=== PATIENT | male | born 1975 | race Two or more races ===

== ENCOUNTER 2017-10-08 12:25 | Inpatient (IN) | payer OTHER ==
[~2017-10-08] VITALS: Ht 167.6 cm; Wt 88.0 kg
[2017-10-08] MEDS ORDERED: SODIUM CHLORIDE 0.9% 1,000 ML IV ONE (12:52)
[2017-10-08] MEDS ORDERED: HYDROmorphone 2 MG/ML, 1ML ONE (12:57)
[2017-10-08] MEDS ORDERED: ONDANSETRON 2MG/ML, 2ML ONE (12:57)
[2017-10-08] MEDS ORDERED: SODIUM CHLORIDE 0.9% 1,000ML IVBOLUS ONE (13:00)
[2017-10-08] MEDS ORDERED: ONDANSETRON 2MG/ML, 2ML IVPush ONE (13:00)
[2017-10-08] MEDS ORDERED: SODIUM CHLORIDE FLUSH 10ML SYR IVF ONE ×2 (13:00)
[2017-10-08] MEDS ORDERED: HYDROmorphone 1 MG/ML, 1ML IVPush PRN (13:00)
[2017-10-08] MEDS ORDERED: MORPHINE SULFATE 4 MG/ML, 1ML ONE ×3 (13:01→15:49)
[2017-10-08] MEDS: MORPHINE SULFATE 4 MG/ML, 1ML IVPush PRN ×2 (13:04→14:21)
[2017-10-08 13:06] LABS: MEAN CORPUSCULAR HEMOGLOBIN 29.4 pg (27.5-34.5); MEAN CORPUSCULAR HGB CONC 33.3 g/dL (33.2-36.2); MEAN CORPUSCULAR VOLUME 88.1 fL (81-97); MEAN PLATELET VOLUME 8.9 fL (7.4-10.4); PLATELET COUNT 263 x10^3/uL (130-400); RED BLOOD COUNT 5.86 x10^6/uL (4.38-5.82); RED CELL DISTRIBUTION WIDTH 13.7 % (9.4-14.8)
[2017-10-08 13:18] LABS: ALBUMIN 4.2 g/dL (3.4-5.0); ANION GAP 8 mmol/L (5-15); CALCIUM 8.9 mg/dL (8.5-10.1); CHLORIDE 107 mmol/L (98-107)
[2017-10-08 13:26] LABS: TROPONIN I < 0.015 ng/mL (0.000-0.045)
[2017-10-08 13:28] LABS: ALANINE AMINOTRANSFERASE 108 U/L (12-78); ALKALINE PHOSPHATASE 132 U/L (45-117); BILIRUBIN,TOTAL 2.1 mg/dL (0.2-1.0); CREATININE 1.09 mg/dL (0.7-1.3); TOTAL PROTEIN 7.8 g/dL (6.4-8.2)
[2017-10-08 13:33] LABS: MD YES
[2017-10-08 13:36] LABS: BAND#(MANUAL) 1.05 x10^3/uL; BANDS%(MANUAL) 4 % (0-7); LYMPH#(MANUAL) 2.89 x10^3/uL (1-3.4); LYMPHS% (MANUAL) 11 % (22-44); MONOS#(MANUAL) 1.58 x10^3/uL (0.3-2.7); MONOS% (MANUAL) 6 % (2-9); SEG#(MANUAL) 20.78 x10^3/uL (1.8-6.8); SEGS% (MANUAL) 79 % (42-75)
[2017-10-08 13:37] LABS: <PLATELET ESTIMATE> ADEQUATE; <PLT MORPHOLOGY> NORMAL PLT MORPH; <RBC MORPHOLOGY> NORMAL
[2017-10-08 17:33] VITALS: BP 121/63
[2017-10-08] MEDS ORDERED: hydrALAzine 20 MG/ML, 1ML IVPush PRN (18:30)
[2017-10-08] MEDS ORDERED: ONDANSETRON 2MG/ML, 2ML IVPush PRN (18:30)
[2017-10-08] MEDS: ENOXAPARIN 40 MG/0.4 ML SQ SCH (18:30)
[2017-10-08] MEDS ORDERED: ACETAMINOPHEN 325 MG TABLET PO PRN (18:30)
[2017-10-08 19:33] VITALS: BP 122/71
[2017-10-08] MEDS: LACTATED RINGERS 1,000 ML IV SCH (19:41)
[2017-10-08] MEDS: HYDROmorphone 2 MG/ML, 1ML IVPush PRN ×2 (19:56→22:14)
[2017-10-09] MEDS: LACTATED RINGERS 1,000 ML IV SCH ×5 (00:49→23:13)
[2017-10-09 01:05] VITALS: BP 120/75
[2017-10-09] MEDS: HYDROmorphone 2 MG/ML, 1ML IVPush PRN ×6 (02:47→22:16)
[2017-10-09 02:52] LABS: MICROSCOPIC NOT IND
[2017-10-09 04:28] LABS: CULTURE INDICATED? NO
[2017-10-09 05:38] LABS: MEAN CORPUSCULAR HEMOGLOBIN 29.7 pg (27.5-34.5); MEAN CORPUSCULAR HGB CONC 34.1 g/dL (33.2-36.2); MEAN CORPUSCULAR VOLUME 87.3 fL (81-97); MEAN PLATELET VOLUME 9.2 fL (7.4-10.4); PLATELET COUNT 223 x10^3/uL (130-400); RED BLOOD COUNT 5.67 x10^6/uL (4.38-5.82); RED CELL DISTRIBUTION WIDTH 14.2 % (9.4-14.8)
[2017-10-09 05:46] LABS: CHLORIDE 111 mmol/L (98-107)
[2017-10-09 05:59] LABS: ALANINE AMINOTRANSFERASE 172 U/L (12-78); ALBUMIN 3.1 g/dL (3.4-5.0); ALKALINE PHOSPHATASE 125 U/L (45-117); ANION GAP 10 mmol/L (5-15); BILIRUBIN,TOTAL 0.8 mg/dL (0.2-1.0); CALCIUM 7.9 mg/dL (8.5-10.1); CHOL/HDL RATIO 3.8; CHOLESTEROL, TOTAL 168 mg/dL (140-239); CREATININE 0.98 mg/dL (0.7-1.3); HDL CHOL % 26 % (26-37); HDL CHOLESTEROL (DIRECT) 44 mg/dL (40-60); LDL CHOLESTEROL,CALCULATED 107 mg/dL (54-169); LDL/HDL RATIO 2.4 (0.5-3.0); TOTAL PROTEIN 6.2 g/dL (6.4-8.2); TRIGLYCERIDES 86 mg/dL (50-200); VLDL CHOLESTEROL 17 mg/dL (0-25)
[2017-10-09 06:38] LABS: BASOPHILS # (AUTO) 0.03 x10^3/uL (0-0.1); BASOPHILS % (AUTO) 0 % (0-1); EOSINOPHILS # (AUTO) 0.01 x10^3/uL (0-0.4); EOSINOPHILS % (AUTO) 0 % (1-7); LYMPHOCYTES # (AUTO) 1.18 x10^3/uL (1-3.4); LYMPHOCYTES % (AUTO) 6 % (22-44); MD SCAN; MONOCYTES # (AUTO) 0.82 x10^3/uL (0.2-0.8); MONOCYTES % (AUTO) 4 % (2-9); NEUTROPHILS # (AUTO) 16.63 x10^3/uL (1.8-6.8); NEUTROPHILS % (AUTO) 89 % (42-75)
[2017-10-09 08:09] VITALS: BP 105/73
[2017-10-09 13:32] VITALS: BP 103/68
[2017-10-09] MEDS: ENOXAPARIN 40 MG/0.4 ML SQ SCH (17:43)
[2017-10-09 22:10] VITALS: BP 120/77
[2017-10-10 00:32] VITALS: BP 108/73
[2017-10-10] MEDS: HYDROmorphone 2 MG/ML, 1ML IVPush PRN ×5 (01:48→22:14)
[2017-10-10] MEDS: LACTATED RINGERS 1,000 ML IV SCH ×2 (04:49→21:00)
[2017-10-10 06:08] LABS: ALBUMIN 2.5 g/dL (3.4-5.0); ANION GAP 8 mmol/L (5-15); CALCIUM 7.3 mg/dL (8.5-10.1); CHLORIDE 108 mmol/L (98-107)
[2017-10-10 06:12] LABS: MEAN CORPUSCULAR HEMOGLOBIN 29.7 pg (27.5-34.5); MEAN CORPUSCULAR HGB CONC 34.1 g/dL (33.2-36.2); MEAN CORPUSCULAR VOLUME 87.2 fL (81-97); MEAN PLATELET VOLUME 9.3 fL (7.4-10.4); PLATELET COUNT 185 x10^3/uL (130-400); RED BLOOD COUNT 5.04 x10^6/uL (4.38-5.82); RED CELL DISTRIBUTION WIDTH 13.9 % (9.4-14.8)
[2017-10-10 06:14] LABS: ALANINE AMINOTRANSFERASE 76 U/L (12-78); ALKALINE PHOSPHATASE 98 U/L (45-117); BILIRUBIN,TOTAL 0.8 mg/dL (0.2-1.0); CREATININE 0.69 mg/dL (0.7-1.3); TOTAL PROTEIN 5.4 g/dL (6.4-8.2)
[2017-10-10 06:25] LABS: MD YES
[2017-10-10 06:40] LABS: BANDS%(MANUAL) 2 % (0-7); LYMPHS% (MANUAL) 2 % (22-44); MONOS% (MANUAL) 4 % (2-9); SEG#(MANUAL) 23.09 x10^3/uL (1.8-6.8); SEGS% (MANUAL) 92 % (42-75)
[2017-10-10 06:41] LABS: <RBC MORPHOLOGY> NORMAL
[2017-10-10 06:42] LABS: <PLATELET ESTIMATE> ADEQUATE; <PLT MORPHOLOGY> NORMAL PLT MORPH
[2017-10-10 06:50] VITALS: BP 115/69
[2017-10-10] MEDS ORDERED: MIDAZOLAM 1 MG/ML, 2ML ONE (08:09)
[2017-10-10] MEDS ORDERED: FENTANYL PF 250 MCG/5ML ONE (08:09)
[2017-10-10] MEDS ORDERED: PROPOFOL 10 MG/ML, 20ML ONE (08:10)
[2017-10-10] MEDS ORDERED: NEOSTIGMINE 1 MG/ML, 10ML ONE (08:11)
[2017-10-10] MEDS ORDERED: ROCURONIUM 10 MG/ML,10ML ONE (08:11)
[2017-10-10] MEDS ORDERED: GLYCOPYRROLATE 0.4 MG/2 ML, 2ML ONE (08:11)
[2017-10-10] MEDS ORDERED: CEFOTETAN PMX 2GM/50ML 50 ML ONE (08:12)
[2017-10-10] MEDS ORDERED: EPINEPHRINE 1 MG/ML, 1ML ONE (09:09)
[2017-10-10] MEDS ORDERED: BUPIVACAINE/PF 0.5% ONE (09:09)
[2017-10-10] MEDS ORDERED: OXYcodone 5 MG/5 ML ORAL.SOL UDC PO PRN ×2 (09:30→13:30)
[2017-10-10] MEDS ORDERED: ONDANSETRON 2MG/ML, 2ML IVPush PRN (09:30)
[2017-10-10] MEDS ORDERED: HYDROmorphone 1 MG/ML, 1ML IV PRN (09:30)
[2017-10-10] MEDS ORDERED: MEPERIDINE/PF 25MG/0.5ML IVPush PRN (09:30)
[2017-10-10] MEDS ORDERED: POTASSIUM PHOS 4.4 MEQ/ML IV ONE (09:30)
[2017-10-10] MEDS ORDERED: PROMETHAZINE 12.5 MG SUPP PR PRN (09:30)
[2017-10-10] MEDS ORDERED: hydrALAzine 20 MG/ML, 1ML IV PRN (09:30)
[2017-10-10] MEDS ORDERED: LABETALOL 5MG/ML, 20ML IV PRN (09:30)
[2017-10-10] MEDS ORDERED: PHENYLEPHRINE 10 MG/ML ONE (09:55)
[2017-10-10] MEDS ORDERED: POTASSIUM PHOSPHATE 22 MEQ in SODIUM CHLORIDE 0.9% 250 ML IV ONE (10:00)
[2017-10-10] MEDS: FENTANYL PF 100 MCG/2ML IV PRN ×3 (11:45→11:58)
[2017-10-10] MEDS ORDERED: OXYcodone 5 MG/5 ML ORAL.SOL UDC ONE (11:46)
[2017-10-10] MEDS ORDERED: FENTANYL PF 100 MCG/2ML ONE (11:46)
[2017-10-10] MEDS ORDERED: ACETAMINOPHEN 650 MG/20.3 ML UDC ONE (11:46)
[2017-10-10 13:20] VITALS: BP 127/82
[2017-10-10] MEDS ORDERED: ONDANSETRON 2MG/ML, 2ML IV PRN (13:30)
[2017-10-10] MEDS ORDERED: morphine SULFATE 10 MG/ML, 1ML IV PRN (13:30)
[2017-10-10] MEDS: ACETAMINOPHEN 500 MG TABLET PO SCH ×2 (13:30→22:16)
[2017-10-10] MEDS ORDERED: OXYcodone IR 5MG TABLET PO PRN (14:30)
[2017-10-10] MEDS: KETOROLAC 30 MG/1 ML IV SCH ×2 (14:31→19:29)
[2017-10-10 20:10] VITALS: BP 109/73
[2017-10-10 23:26] VITALS: BP 93/54
[2017-10-11] MEDS: HYDROmorphone 2 MG/ML, 1ML IVPush PRN ×2 (00:20→07:34)
[2017-10-11] MEDS: KETOROLAC 30 MG/1 ML IV SCH ×4 (01:24→19:26)
[2017-10-11] MEDS: OXYcodone IR 5MG TABLET PO PRN ×6 (02:32→23:20)
[2017-10-11 03:37] VITALS: BP 109/69
[2017-10-11] MEDS: ACETAMINOPHEN 500 MG TABLET PO SCH ×3 (03:55→19:26)
[2017-10-11 04:07] LABS: MEAN CORPUSCULAR HEMOGLOBIN 29.9 pg (27.5-34.5); MEAN PLATELET VOLUME 9.2 fL (7.4-10.4); PLATELET COUNT 159 x10^3/uL (130-400); RED CELL DISTRIBUTION WIDTH 14.1 % (9.4-14.8)
[2017-10-11 04:21] LABS: CHLORIDE 106 mmol/L (98-107)
[2017-10-11 04:29] LABS: ALANINE AMINOTRANSFERASE 117 U/L (12-78); ALBUMIN 2.1 g/dL (3.4-5.0); ALKALINE PHOSPHATASE 91 U/L (45-117); ANION GAP 6 mmol/L (5-15); BILIRUBIN,TOTAL 0.7 mg/dL (0.2-1.0); CALCIUM 7.3 mg/dL (8.5-10.1); CREATININE 0.63 mg/dL (0.7-1.3); TOTAL PROTEIN 5.4 g/dL (6.4-8.2)
[2017-10-11 04:52] LABS: MD YES
[2017-10-11 04:54] LABS: <PLATELET ESTIMATE> ADEQUATE; <PLT MORPHOLOGY> NORMAL PLT MORPH; <RBC MORPHOLOGY> NORMAL; BAND#(MANUAL) 0.74 x10^3/uL; BANDS%(MANUAL) 4 % (0-7); EOS#(MANUAL) 0.19 x10^3/uL (0.0-0.4); EOS% (MANUAL) 1 % (1-7); LYMPH#(MANUAL) 2.05 x10^3/uL (1-3.4); LYMPHS% (MANUAL) 11 % (22-44); MONOS#(MANUAL) 1.67 x10^3/uL (0.3-2.7); MONOS% (MANUAL) 9 % (2-9); SEG#(MANUAL) 13.95 x10^3/uL (1.8-6.8); SEGS% (MANUAL) 75 % (42-75)
[2017-10-11] MEDS: LACTATED RINGERS 1,000 ML IV SCH (05:11)
[2017-10-11] MEDS: ENOXAPARIN 40 MG/0.4 ML SQ SCH (06:02)
[2017-10-11 08:17] VITALS: BP 117/68
[2017-10-11] MEDS ORDERED: POTASSIUM PHOS 4.4 MEQ/ML IV ONE (13:00)
[2017-10-11] MEDS ORDERED: POTASSIUM PHOSPHATE 22 MEQ in SODIUM CHLORIDE 0.9% 250 ML IV ONE (13:30)
[2017-10-11 15:11] VITALS: BP 102/70
[2017-10-11 19:16] VITALS: BP_SYST 121; BP_SYST 131; BP_DIAS 81; BP_DIAS 84
[2017-10-12 00:15] VITALS: BP 118/77
[2017-10-12] MEDS: OXYcodone IR 5MG TABLET PO PRN ×6 (02:20→20:56)
[2017-10-12] MEDS: ACETAMINOPHEN 500 MG TABLET PO SCH ×4 (04:17→20:46)
[2017-10-12] MEDS: LACTATED RINGERS 1,000 ML IV SCH ×2 (04:17→17:49)
[2017-10-12] MEDS: ENOXAPARIN 40 MG/0.4 ML SQ SCH (05:27)
[2017-10-12 07:04] VITALS: BP 123/80
[2017-10-12] MEDS ORDERED: MAGNESIUM HYDROXIDE 8%, 30ML UDC ONE (09:23)
[2017-10-12] MEDS: MAGNESIUM HYDROXIDE 8%, 30ML UDC PO SCH (09:26)
[2017-10-12] MEDS: DOCUSATE 100 MG CAPSULE PO SCH ×2 (09:26→20:46)
[2017-10-12] MEDS ORDERED: BISACODYL 10 MG SUPP PR PRN (09:30)
[2017-10-12 14:51] VITALS: BP 138/84
[2017-10-12] MEDS: NEUTRA PHOS K 250 MG TABLET PO SCH ×2 (17:48→20:46)
[2017-10-12 18:53] VITALS: BP 145/89
[2017-10-13] MEDS: OXYcodone IR 5MG TABLET PO PRN ×4 (00:18→13:08)
[2017-10-13 00:49] VITALS: BP 125/78
[2017-10-13] MEDS: LACTATED RINGERS 1,000 ML IV SCH (02:20)
[2017-10-13] MEDS: ACETAMINOPHEN 500 MG TABLET PO SCH ×2 (04:22→13:08)
[2017-10-13 05:47] LABS: MEAN CORPUSCULAR HEMOGLOBIN 29.4 pg (27.5-34.5); MEAN CORPUSCULAR HGB CONC 33.4 g/dL (33.2-36.2); MEAN CORPUSCULAR VOLUME 87.8 fL (81-97); PLATELET COUNT 228 x10^3/uL (130-400); RED BLOOD COUNT 3.93 x10^6/uL (4.38-5.82)
[2017-10-13 05:50] LABS: ANION GAP 8 mmol/L (5-15); CALCIUM 7.4 mg/dL (8.5-10.1); CHLORIDE 104 mmol/L (98-107)
[2017-10-13 05:53] LABS: CREATININE 0.48 mg/dL (0.7-1.3)
[2017-10-13] MEDS: ENOXAPARIN 40 MG/0.4 ML SQ SCH (06:08)
[2017-10-13 06:54] VITALS: BP 125/75
[2017-10-13 06:54] LABS: BASOPHILS # (AUTO) 0.03 x10^3/uL (0-0.1); BASOPHILS % (AUTO) 0 % (0-1); EOSINOPHILS # (AUTO) 0.39 x10^3/uL (0-0.4); EOSINOPHILS % (AUTO) 3 % (1-7); LYMPHOCYTES # (AUTO) 1.49 x10^3/uL (1-3.4); LYMPHOCYTES % (AUTO) 9 % (22-44); MD SCAN; MONOCYTES # (AUTO) 1.21 x10^3/uL (0.2-0.8); MONOCYTES % (AUTO) 8 % (2-9); NEUTROPHILS # (AUTO) 12.67 x10^3/uL (1.8-6.8); NEUTROPHILS % (AUTO) 80 % (42-75)
[2017-10-13] MEDS ORDERED: POTASSIUM PHOSPHATE 44 MEQ in SODIUM CHLORIDE 0.9% 500 ML IV ONE (08:30)
[2017-10-13] MEDS: NEUTRA PHOS K 250 MG TABLET PO SCH (09:00)
[2017-10-13] MEDS: DOCUSATE 100 MG CAPSULE PO SCH (09:00)
[2017-10-13] MEDS: MAGNESIUM HYDROXIDE 8%, 30ML UDC PO SCH (09:00)
[2017-10-13] MEDS ORDERED: NEUTRA PHOS K 250 MG TABLET PO ONE (10:30)
[2017-10-13] MEDS ORDERED: POTASSIUM CHLORIDE 20 MEQ TAB.ER.PRT PO ONE (10:30)
[2017-10-13 13:03] VITALS: BP 132/77
[2017-10-13] MEDS ORDERED: DOCU-131 PO (13:38)
[2017-10-13] MEDS ORDERED: ACET325T14 PO (13:38)
[2017-10-13] MEDS ORDERED: PHOS250T3 PO (13:39)
[2017-10-13] MEDS ORDERED: OXYC1TAB7 PO (14:23)
== END 2017-10-13 15:05 | disposition home or self-care (01) | DRG 417 ==
LOC: ED 13:20 → EDIP 15:30 → 4WST 17:01 → 4NOR 10-10 12:59
PROVIDERS: ADMIT Hospitalist; ATTEND Family Medicine
PROC: 0FT44ZZ Resection of Gallbladder, Percutaneous Endoscopic Approach (ICD-10-PCS; principal; 2017-10-10 09:30)
DX: K80.12 Calculus of gallbladder with acute and chronic cholecystitis without obstruction (principal); K85.10 Biliary acute pancreatitis without necrosis or infection; E44.0 Moderate protein-calorie malnutrition; E83.39 Other disorders of phosphorus metabolism; E86.0 Dehydration; E87.6 Hypokalemia; F17.210 Nicotine dependence, cigarettes, uncomplicated; I10 Essential (primary) hypertension; Z68.31 Body mass index [BMI] 31.0-31.9, adult
CPT/HCPCS: 36415; 74177; 74181; 76700; 80048; 80053; 80061; 81003; 83605; 83690; 83735; 84100; 84478; 84484; 85025; 88304; 93005; 96361; 96374; 96375; 96376; J0171; J1170; J1650; J1885; J2250; J2405; J2704; J2710; J3010; J3490; C1760; J2370; J7030; J7040; J7050; J7120; S0074

== ENCOUNTER 2017-11-26 00:33 | Emergency (ER) | payer OTHER ==
[~2017-11-26] VITALS: Ht 167.6 cm; Wt 75.0 kg
[~2017-11-26 00:33] MED LIST: ACET325T14 PO; DOCU-131 PO; OXYC1TAB7 PO; PHOS250T3 PO
[2017-11-26] MEDS ORDERED: SODIUM CHLORIDE FLUSH 10ML SYR IVF ONE ×2 (01:00→01:30)
[2017-11-26] MEDS ORDERED: ONDANSETRON ODT 4 MG PO ONE (01:30)
[2017-11-26 01:39] LABS: BASOPHILS # (AUTO) 0.04 x10^3/uL (0-0.1); BASOPHILS % (AUTO) 0 % (0-1); EOSINOPHILS # (AUTO) 0.07 x10^3/uL (0-0.4); EOSINOPHILS % (AUTO) 1 % (1-7); LYMPHOCYTES # (AUTO) 1.67 x10^3/uL (1-3.4); LYMPHOCYTES % (AUTO) 15 % (22-44); MD NO; MEAN CORPUSCULAR HEMOGLOBIN 28.8 pg (27.5-34.5); MEAN CORPUSCULAR HGB CONC 33.9 g/dL (33.2-36.2); MEAN PLATELET VOLUME 8.6 fL (7.4-10.4); MONOCYTES # (AUTO) 0.37 x10^3/uL (0.2-0.8); MONOCYTES % (AUTO) 3 % (2-9); NEUTROPHILS # (AUTO) 8.72 x10^3/uL (1.8-6.8); NEUTROPHILS % (AUTO) 80 % (42-75); PLATELET COUNT 298 x10^3/uL (130-400); RED BLOOD COUNT 5.22 x10^6/uL (4.38-5.82); RED CELL DISTRIBUTION WIDTH 14.1 % (9.4-14.8)
[2017-11-26 01:41] LABS: ALANINE AMINOTRANSFERASE 20 U/L (12-78); ALBUMIN 4.1 g/dL (3.4-5.0); ANION GAP 11 mmol/L (5-15); CALCIUM 9.3 mg/dL (8.5-10.1); CHLORIDE 106 mmol/L (98-107); CREATININE 0.97 mg/dL (0.7-1.3)
[2017-11-26 01:43] LABS: ALKALINE PHOSPHATASE 97 U/L (45-117); BILIRUBIN,TOTAL 0.5 mg/dL (0.2-1.0); TOTAL PROTEIN 7.9 g/dL (6.4-8.2)
[2017-11-26] MEDS ORDERED: ONDANSETRON ODT 4 MG ONE (01:48)
[2017-11-26] MEDS ORDERED: MORPHINE SULFATE 4 MG/ML, 1ML ONE ×3 (01:49→03:26)
[2017-11-26] MEDS: MORPHINE SULFATE 4 MG/ML, 1ML IVPush PRN ×2 (01:50→02:17)
[2017-11-26] MEDS ORDERED: OMNIPAQUE 350 MG/ML, 100ML BOTTLE ONE (02:47)
[2017-11-26 02:59] LABS: MICROSCOPIC NOT IND
[2017-11-26 03:02] LABS: CULTURE INDICATED? NO
[2017-11-26] MEDS ORDERED: MORPHINE SULFATE 4 MG/ML, 1ML IVPush ONE (03:30)
[2017-11-26 04:15] VITALS: BP 112/76
== END 2017-11-26 04:21 | disposition home or self-care (01) ==
LOC: ED 00:51
DX: R10.84 Generalized abdominal pain (principal); I10 Essential (primary) hypertension; Z90.49 Acquired absence of other specified parts of digestive tract; F17.200 Nicotine dependence, unspecified, uncomplicated
CPT/HCPCS: 36415; 74177; 80053; 81003; 83690; 85025; 96374; 96376; 99285; Q0162; Q9967